=== PATIENT | female | born 1980 | race Two or more races ===

== ENCOUNTER 2023-07-22 02:41 | Emergency (ER) | payer BC, OTHER ==
[~2023-07-22] VITALS: Ht 157.5 cm; Wt 61.6 kg
[2023-07-22 04:32] LABS: Basophils # (auto) 0.1 10 ^3/uL (0-0.2); Basophils % (auto) 0.8 % (0.0-2.0); Eosinophils # (auto) 0.2 10 ^3/uL (0-0.8); Eosinophils % (auto) 3.2 % (0.0-7.0); Hematocrit 38.3 % (36.0-46.0); Hemoglobin 12.8 g/dL (12.2-16.2); Lymphocytes # (auto) 1.2 10 ^3/uL (0.4-5.4); Lymphocytes % (auto) 19.2 % (10.0-50.0); Mean Corpuscular Hemoglobin 31.4 pg (28.0-32.0); Mean Corpuscular Hgb Conc. 33.3 g/dL (32.0-36.0); Mean Corpuscular Volume 94.4 fL (80.0-100.0); Monocytes # (auto) 0.5 10 ^3/uL (0-1.3); Monocytes % (auto) 7.3 % (0.0-12.0); Neutrophils # (auto) 4.3 10 ^3/uL (1.6-8.6); Neutrophils % (auto) 69.5 % (37.0-80.0); Nucleated Red Blood Cells % 0.1 %; Red Blood Cells 4.06 10^6/uL (4.0-5.20); Red Cell Distribution Width 14.3 % (11.8-14.3); White Blood Cell 6.2 10^3/uL (4.4-10.8)
[2023-07-22 04:52] LABS: Alanine Aminotransferase 29 U/L (7-40); Albumin 4.5 g/dL (3.2-4.8); Alkaline Phosphatase 67 U/L (46-116); Anion Gap 6 (5-15); Aspartate Aminotransferase 26 U/L (13-40); BUN/Creatinine Ratio 10.7 (10.0-20.0); Blood Urea Nitrogen 9 mg/dL (9-23); Calcium 9.6 mg/dL (8.7-10.4); Carbon Dioxide 25 mmol/L (20-30); Chloride 109 mmol/L (98-107); Glucose 100 mg/dL (74-106); Potassium 3.9 mmol/L (3.5-5.1); Sodium 140 mmol/L (136-145)
[2023-07-22 04:53] LABS: Bilirubin, Total 0.7 mg/dL (0.2-1.0); Total Protein 6.7 g/dL (5.7-8.2)
[2023-07-22] MEDS ORDERED: BACDST PO (07:48)
[2023-07-22 07:56] VITALS: BP 137/92; PULSE 96; RESP 16; TEMP 98; O2SAT 99
[2023-07-22] MEDS: cefTRIAXone SOD 1,000 MG VL IM ONE (07:58)
[2023-07-22] MEDS: KETOROLAC TROMETH 60MG/2ML VIAL IM ONE (07:58)
[2023-07-22 09:07] LABS: Urine Bacteria None Seen /hpf (None Seen)
[2023-07-22 09:25] LABS: Urine Blood Negative /uL (Negative); Urine Clarity Clear (Clear); Urine Color Yellow (Yellow); Urine Mucus FEW (None Seen); Urine Protein, UAD Negative (Negative); Urine Specific Gravity 1.021 (1.001-1.035); Urine Urobilinogen Normal (Negative); Urine WBC 1 /hpf (0 - 5)
== END 2023-07-22 09:03 | disposition home or self-care (01) ==
LOC: ER 02:41
DX: K52.9 Noninfective gastroenteritis and colitis, unspecified (principal); R10.2 Pelvic and perineal pain; N39.0 Urinary tract infection, site not specified; I10 Essential (primary) hypertension; Z79.899 Other long term (current) drug therapy
CPT/HCPCS: 36415; 80053; 81001; 84702; 85025; 96372; 99284; J0696; J1885

== ENCOUNTER 2024-04-19 21:18 | Emergency (ER) | payer BC ==
[~2024-04-19] VITALS: Ht 157.5 cm; Wt 59.1 kg
[~2024-04-19 21:18] MED LIST: BACDST PO
[2024-04-19 21:40] VITALS: BP 142/97; PULSE 105; RESP 18; O2SAT 97
== END 2024-04-19 23:38 | disposition left against medical advice (07) ==
LOC: ER 21:18
DX: M25.552 Pain in left hip (principal); M25.562 Pain in left knee; Z53.21 Procedure and treatment not carried out due to patient leaving prior to being seen by health care provider